=== PATIENT | female | born 1985 | race Caucasian/White ===

== ENCOUNTER 2020-01-30 08:25 | Outpatient (CLI) | payer OTHER ==
--- NOTE | 2020-01-30 09:10 | ULT ---
US Gallbladder RUQ: 01/30/2020 12:00 AM CLINICAL HISTORY: Right upper quadrant abdominal pain for one month. STUDY: Limited right upper quadrant ultrasound of abdomen. COMPARISON: None. FINDINGS: Liver: Size: Normal. Echogenicity: Normal. Contour: Smooth. Mass: None. Bile ducts: No intrahepatic or extrahepatic biliary dilatation. Common bile duct measures 4 mm. Gallbladder: Normal. Pancreas: Head, body, and tail appear normal. Right kidney: No pelvicalyceal dilatation. Right kidney measuring 10.9 cm in length. IMPRESSION: Unremarkable exam.
== END 2020-01-30 08:26 | disposition home or self-care (01) ==
LOC: SCSULT 08:25
PROVIDERS: ATTEND Physician Assistant Medical
DX: R10.11 Right upper quadrant pain (principal)
CPT/HCPCS: 76705